=== PATIENT | female | born 1985 | race Caucasian/White ===

== ENCOUNTER → 2018-01-08 09:01 | Outpatient (CLI) | payer OTHER, SELFPAY ==
--- NOTE | 2018-01-08 09:08 | US_ITS ---
STUDY: ULTRASOUND OF THE FEMALE PELVIS - COMPLETE REASON FOR EXAM: Female, 32 years old. History of cervical cancer with hysterectomy. History of ovarian cyst. TECHNIQUE: Transabdominal and Transvaginal TECHNICAL QUALITY: Adequate. COMPARISON: CT the abdomen and pelvis, January 14, 2014. FINDINGS: The uterus is surgically absent. The right ovary is visualized. The right ovary measures 2.6 x 2.4 x 1.7 cm. There are multiple follicles of the right ovary without a dominant cyst. There is no visualized right adnexal mass or complex lesion. There is normal arterial and normal venous vascularity. The left ovary is visualized. The left ovary measures 2.2 x 1.6 x 2.1 cm. There are multiple follicles of the left ovary without a dominant cyst. There is no visualized left adnexal mass or complex lesion. There is normal arterial and normal venous vascularity. There is no fluid in the cul-de-sac. US/Pelvic (Non ) IMPRESSION: 1. Status post hysterectomy. 2. Bilateral ovarian follicles without evidence of cyst or other adnexal abnormality. Electronically Signed: Phil Jennings DO at 16:56 EDT Tel [phone], Service support ,
--- NOTE | 2018-01-08 09:09 | US_ITS ---
STUDY: ULTRASOUND OF THE FEMALE PELVIS - COMPLETE REASON FOR EXAM: Female, 32 years old. History of cervical cancer with hysterectomy. History of ovarian cyst. TECHNIQUE: Transabdominal and Transvaginal TECHNICAL QUALITY: Adequate. COMPARISON: CT the abdomen and pelvis, January 14, 2014. FINDINGS: The uterus is surgically absent. The right ovary is visualized. The right ovary measures 2.6 x 2.4 x 1.7 cm. There are multiple follicles of the right ovary without a dominant cyst. There is no visualized right adnexal mass or complex lesion. There is normal arterial and normal venous vascularity. The left ovary is visualized. The left ovary measures 2.2 x 1.6 x 2.1 cm. There are multiple follicles of the left ovary without a dominant cyst. There is no visualized left adnexal mass or complex lesion. There is normal arterial and normal venous vascularity. There is no fluid in the cul-de-sac. US/Transvaginal Non- IMPRESSION: 1. Status post hysterectomy. 2. Bilateral ovarian follicles without evidence of cyst or other adnexal abnormality. Electronically Signed: Phil Jennings DO at 16:56 EDT Tel [phone], Service support ,
== END ==
PROVIDERS: Family Provider Internal Medicine; PCP Internal Medicine; Visit Provider Obstetrics & Gynecology
DX: N83.202 Unspecified ovarian cyst, left side (principal); C53.9 Malignant neoplasm of cervix uteri, unspecified
CPT/HCPCS: 76830; 76856; 93976

== ENCOUNTER → 2018-08-08 16:50 | Outpatient (CLI) | payer OTHER, SELFPAY ==
--- NOTE | 2018-08-08 16:52 | CT_ITS ---
STUDY: CT ABDOMEN AND PELVIS WITH CONTRAST REASON FOR EXAM: Female, 32 years old. Abdominal pain. History of hysterectomy for cervical cancer. RADIATION DOSAGE (If Supplied By Facility): CTDIvol = ( 15.00 ) mGy, DLP = ( 498.70 ) mGycm TECHNIQUE: Transaxial images were obtained from the dome of the diaphragm to the symphysis pubis without oral contrast. 80ml ml of Isovue 300 contrast was administered. Sagittal and coronal images were reconstructed. Individualized dose optimization techniques were used for this CT. COMPARISON: None. FINDINGS: The visualized lung bases are clear. The visualized portions of the heart and pericardium are within normal limits. There are no calcified gallstones present. The liver is within normal limits. There are no suspicious hepatic lesions. The spleen is normal in size. The pancreas is within normal limits. The adrenal glands are within normal limits. There are no renal or ureteral stones. There is no hydronephrosis. There are no focal renal lesions. Normal visualized stomach. There is no bowel obstruction or inflammation. The appendix is visualized and appears normal. The patient is status post hysterectomy. The aorta is normal in caliber. There is no abdominal or pelvic free air, free fluid, fluid collection or lymphadenopathy. There are no destructive osseous lesions. CT/Abdomen/Pelvis W IV Cont ONLY IMPRESSION: No acute abdominal or pelvic pathology. Electronically Signed: Michael Farah, at 15:47 EST Tel , Service support ,
[2018-08-08 17:11] LABS: CREATININE FINGERSTICK 1.2 mg/dL (0.55-1.02)
--- NOTE | 2018-08-08 17:21 | RAD_ITS ---
STUDY: X-RAY CHEST REASON FOR EXAM: Female, 32 years old. Squamous cell carcinoma TECHNIQUE: Frontal and lateral views COMPARISON: None. FINDINGS: The lungs are clear and expanded. There is no demonstrated pleural abnormality. Normal size heart. Normal mediastinum and melina. Normal visualized pulmonary arteries. Normal visualized aortic arch and descending thoracic aorta. Normal visualized thoracic spine. Normal visualized ribs, clavicles, and shoulders. There is no demonstrated abnormality of the visualized soft tissue structures of the upper abdomen. RAD/Chest PA and Lateral IMPRESSION: Normal x-ray examination of the chest. Electronically Signed: Hermilo Brower DO at 23:30 EST Tel [phone], Service support ,
== END ==
PROVIDERS: Family Provider Internal Medicine; PCP Internal Medicine; Referring Provider Obstetrics & Gynecology; Visit Provider Obstetrics & Gynecology
DX: C53.9 Malignant neoplasm of cervix uteri, unspecified (principal); R10.84 Generalized abdominal pain; R11.0 Nausea
CPT/HCPCS: 71046; 74177; Q9967

== ENCOUNTER → 2019-06-19 12:43 | Outpatient (CLI) | payer OTHER, SELFPAY ==
[2019-06-04 14:10] VITALS: BMI 22.6
--- NOTE | 2019-06-19 12:47 | RAD_ITS ---
STUDY: SWALLOWING STUDY REASON FOR EXAM: Female, 33 years old. Dysphagia. TECHNIQUE: The examination was performed with Speech Pathology in attendance. Under fluoroscopic observation, the patient ingested thin barium, thick barium, barium pudding, and barium coated cracker. FLUOROSCOPY TIME: 1:16 minutes/seconds. 1123 spot radiographs are obtained. RADIOLOGIST INVOLVEMENT: Radiologist was present and providing direct supervision. COMPARISON: None. FINDINGS: The following was observed during swallowing of the various mixtures of barium: Thin Barium: There was no evidence of aspiration or laryngeal penetration. Barium Pudding: There was no evidence of aspiration or laryngeal penetration. Barium Coated Cracker: There was no evidence of aspiration or laryngeal penetration. RAD/Swallowing Function w/Video IMPRESSION: Normal tailored barium swallow study. No evidence of increased risk for aspiration. The swallow study findings were discussed with the patient by the speech pathologist at the conclusion of the examination. Please see speech pathology report for more information and recommendations. Electronically Signed: Jorge Anderson, at 13:19 EDT , Service support ,
--- NOTE | 2019-06-19 13:00 | SP.MBSS_ITS ---
PRIMARY / SECONDARY DIAGNOSIS: dysphagia (R13.10) REFERRING PHYSICIAN: Ronal Noble DNP CURRENT DIET: regular textures, thin liquids DENTITION: WFL MENTAL STATUS: WNL RESPIRATORY STATUS: O2 via room air REASON FOR REFERRAL: The Patient is a 33 year old female referred for a modified barium swallow (MBS) study to objectively assess the Patients oropharyngeal swallow function under fluoroscopy secondary to intermittent dysphagia particularly during ingestion of solid textures (meats, breads), with an increase in symptomology over the last 1-2 months, with occasional coughing leading to one episode of near emesis. She does report a family history of esophageal strictures. She reports recent placement on proton pump inhibitors approximately 2 weeks prior to the assessment (Omeprazole, 20mg daily), with possible considerations for further gastroenterology referrals (considerations for upper endoscopy). MEDICAL HISTORY: Asthma, cervical cancer status post biopsy and total hysterectomy, gastroesophageal reflux disease. PREVIOUS MODIFIED BARIUM SWALLOW STUDY: None. ASSESSMENT PARAMETERS: The Patient participated in a Modified Barium Swallow (MBS) study on 06/19/2019. Dr. Anderson was the radiologist present for this evaluation. This study was recorded in the lateral view and images were sent to PACs for storage. Scoring was completed through each trial using the 8-point Penetration-Aspiration Scale (PAS), and summarized via the Modified Barium Swallow Impairment Profile (MBSImP) and the Bolus Residue Scale (BRS), with severity scoring through the Dysphagia Severity Rating Scale (DSRS) and the Swallowing Performance Scale (PSP), and recommended diet textures through the International Dysphagia Diet Standardisation Initiative (IDDSI). RESULTS OF THE EVALUATION: The Patient presents with mastication and deglutition abilities found to be grossly within functional limits (DSRS: 1; SPS: 2) OBJECTIVE ASSESSMENT OF SWALLOW FUNCTION (QUANTITATIVE ? PER TRIAL): PENETRATION / ASPIRATION SCALE (SHER): 1 = does not enter airway 2 = enters airway/above vocal folds/ejected 3 = enters airway/above vocal folds/not ejected 4 = enters airway/contacts vocal folds/ejected 5 = enters airway/contacts vocal folds/not ejected 6 = enters airway/below vocal folds/ejected 7 = enters airway/below vocal folds/not ejected despite effort 8 = enters airway/below vocal folds/no effort PENETRATION / ASPIRATION SCALE (SCORE): Thin liquid - 5 mL tsp.: 1 Thin liquids via cup (single sip): 1 Thin liquids via cup (single sip): 1 Thin liquids via cup (single sip): 1 Thin liquids via cup (sequential swallows): 2 Pudding via spoon: 1 Regular textured cookie: 1 Thin liquids via straw (sequential swallows): 2 OBJECTIVE ASSESSMENT OF SWALLOW FUNCTION (QUANTITATIVE ? AGGREGATE): MODIFIED BARIUM SWALLOW IMPAIRMENT PROFILE (MBSImP) LABIAL SEAL: 0 (of 4) no labial escape TONGUE CONTROL: 0 (of 3) cohesive bolus BOLUS PREPARATION / MASTICATION: 0 (of 3) timely and efficient BOLUS TRANSPORT / LINGUAL MOTION: 0 (of 4) brisk tongue motion ORAL RESIDUE: 1 (of 4) trace residue lining oral structures INITIATION OF PHARYNGEAL SWALLOW: 1 (of 4) valleculae SOFT PALATE ELEVATION: 1 (of 4) trace column between soft palate & pharyngeal wall LARYNGEAL ELEVATION: 0 (of 3) complete superior movement / approximation ANTERIOR HYOID EXCURSION: 1 (of 2) partial movement EPIGLOTTIC MOVEMENT: 0 (of 2) complete inversion LARYNGEAL VESTIBULE CLOSURE: 0 (of 2) complete closure PHARYNGEAL STRIPPING WAVE: 0 (of 2) present / complete PE SEGMENT OPENIN (of 3) complete distension / duration; no obstruction TONGUE BASE RETRACTION: 1 (of 4) trace column of contrast PHARYNGEAL RESIDUE: 1 (of 4) trace residue ESOPHAGEAL BOLUS CLEARANCE: 0 (of 4) complete clearance; esophageal coating BOLUS RESIDUE SCALE (BRS): 1 (of 6) no residue DYSPHAGIA SEVERITY RATING SCALE (DSRS): 1 (within functional limits) SWALLOWING PERFORMANCE SCALE (SPS): 2 (within functional limits) OBJECTIVE ASSESSMENT OF SWALLOW FUNCTION (QUALITATIVE): ORAL PREPARATORY PHASE: oral preparatory phase appears unremarkable; sufficient mastication rate and quality; sufficient anterior oral containment during presentation / manipulation; preserved management of breathing / bolus formation. ORAL TRANSITIONAL PHASE: oral transitional phase appears unremarkable; no presence of transitional incompetence; no lingual discoordination (no tremor / undulations); no bolus consolidation impairments; no presence of premature posterior bolus loss; PHARYNGEAL PHASE: no clinical findings suggestive of pharyngeal dyssynchrony; appropriate hyolaryngeal excursion and laryngeal vestibule closure / pressure; sufficient / consistent laryngeal vestibule pressure generated to expel penetrated material; no clinical evidence of pharyngeal dysmotility; no clinical evidence suggestive of velopharyngeal impairments; transient shallow prandial penetration with sequential ingestion not necessarily outside normative values; no further penetration / no aspiration throughout trials. ESOPHAGEAL PHASE: no obvious esophageal phase abnormalities observed, though given her reported symptoms further workup would likely be of benefit. CONTRIBUTING / COMPLICATING FACTORS AND NOTABLE FINDINGS: there was a very small non-obstructive prominence emanating from the anterior upper esophageal sphincter region projecting posteriorly almost similar in nature to a small cricopharyngeal bar, though this was again very small in size; no clinical impact noted upon examination. RESPONSE TO STRATEGIES: all deficits ameliorated with bolus rate / volume adjustments. DYSPHAGIA ASSOCIATED MEDICAL CONSIDERATIONS / INTERVENTION CONSIDERATIONS: I would consider additional assessment of the Patients esophageal functioning given the nature of her complaints, particularly if pharmacological treatment via proton pump inhibitor fails to alleviate her symptomology. INTERVENTION RECOMMENDATIONS AND CONSIDERATIONS: The Patient presents with mastication and deglutition abilities found to be grossly within functional limits, with transient shallow penetration during sequential ingestion of thin liquids not significantly outside normative values. No further skilled speech-language services warranted at this time targeting dysphagia. POST ASSESSMENT EDUCATION: Results and recommendations were discussed with the Patient immediately following MBS completion, with the Patient verbalizing understanding and agreement with all recommendations and education provided. The Patient was able to comprehend information presented regarding the effects of bolus volume reduction, along with considerations for further workup of her possible esophageal based symptoms. DIET TEXTURE RECOMMENDATIONS: Will recommend a regular textured (IDDSI: 7), thin liquid diet (IDDSI: 0) diet RECOMMENDED COMPENSATORY STRATEGIES: Reduced bolus volume / rate of ingestion, seated upright at 90 degrees during PO intake, remain upright for 30-60 minutes post meal (GERD precaution) IMAGE COUNT: [id number] Emiliano Churchill M.A., KIERRA-RESERVATION MANAGER, CBIS MBSImP Certified, LSVT Certified [facility] Speech-Language Pathology Department [email or web address]
== END ==
PROVIDERS: Family Provider Internal Medicine; PCP Internal Medicine; Referring Provider Nurse Practitioner Family; Visit Provider Nurse Practitioner Family
DX: R13.10 Dysphagia, unspecified (principal)
CPT/HCPCS: 74230; 92611

== ENCOUNTER → 2019-06-24 08:02 | Outpatient (CLI) | payer OTHER, SELFPAY ==
[2018-10-05 15:15] VITALS: BMI 21.9
[2019-06-04 14:10] VITALS: BMI 22.6
--- NOTE | 2019-06-24 08:05 | US_ITS ---
STUDY: ULTRASOUND OF THE FEMALE PELVIS - COMPLETE REASON FOR EXAM: Female, 33 years old. History of cervical cancer. LMP: Prior hysterectomy. TECHNIQUE: Transabdominal and Transvaginal TECHNICAL QUALITY: Adequate. COMPARISON: Comparison is made with prior study dated January 08, 2018. FINDINGS: The patient is status post hysterectomy. The right ovary is visualized. The right ovary measures 2.5 cm x 2.8 cm x 2.1 cm. There is no right ovarian cyst or ovarian mass. There is no visualized right adnexal mass or complex lesion. There is normal arterial and normal venous vascularity. The left ovary is visualized. The left ovary measures 1.9 cm x 1.7 cm x 1.7 cm. There is no left ovarian cyst or ovarian mass. There is no visualized left adnexal mass or complex lesion. There is normal arterial and normal venous vascularity. There is no fluid in the cul-de-sac. The pre void volume of the bladder was 270 ml. The post void volume of the bladder was ml. Polycystic ovary disease: No. US/Pelvic (Non ) IMPRESSION: Status post hysterectomy. There has been no change as compared to prior study. Electronically Signed: Jorge Anderson, at 10:30 EST , Service support ,
--- NOTE | 2019-06-24 08:05 | US_ITS ---
STUDY: ULTRASOUND OF THE FEMALE PELVIS - COMPLETE REASON FOR EXAM: Female, 33 years old. History of cervical cancer. LMP: Prior hysterectomy. TECHNIQUE: Transabdominal and Transvaginal TECHNICAL QUALITY: Adequate. COMPARISON: Comparison is made with prior study dated January 08, 2018. FINDINGS: The patient is status post hysterectomy. The right ovary is visualized. The right ovary measures 2.5 cm x 2.8 cm x 2.1 cm. There is no right ovarian cyst or ovarian mass. There is no visualized right adnexal mass or complex lesion. There is normal arterial and normal venous vascularity. The left ovary is visualized. The left ovary measures 1.9 cm x 1.7 cm x 1.7 cm. There is no left ovarian cyst or ovarian mass. There is no visualized left adnexal mass or complex lesion. There is normal arterial and normal venous vascularity. There is no fluid in the cul-de-sac. The pre void volume of the bladder was 270 ml. The post void volume of the bladder was ml. Polycystic ovary disease: No. US/Transvaginal Non- IMPRESSION: Status post hysterectomy. There has been no change as compared to prior study. Electronically Signed: Jorge Anderson, at 10:30 EST , Service support ,
== END ==
PROVIDERS: Family Provider Internal Medicine; PCP Internal Medicine; Referring Provider Obstetrics & Gynecology; Visit Provider Obstetrics & Gynecology
DX: C53.9 Malignant neoplasm of cervix uteri, unspecified (principal)
CPT/HCPCS: 76830; 76856

== ENCOUNTER → 2019-11-20 07:54 | Outpatient (CLI) | payer OTHER, SELFPAY ==
[2019-10-31 06:33] VITALS: BMI 22.3
--- NOTE | 2019-11-20 17:13 | PFTCOMP ---
COMPLETE PULMONARY FUNCTION TEST INTERPRETATION Brief HPI: Patient is a 34 year old female, currently under the care of myself, who presents to [facility] for complete pulmonary function tests secondary to diagnosis of dyspnea. Respiratory therapist reports good effort and reproducible results. Interpretation: Forced expiration spirometry shows no large airways obstructive ventilatory defect with an FEV1 of 115% predicted. There is no significant bronchodilator response by strict ATS criteria. Spirograms are of good quality and plateau normally. The respiratory flow volume loop shows a normal pattern. Lung volumes by body plethysmography show a normal total lung capacity at 5.28 L, 112% predicted. All other lung volumes are within normal limits. Diffusion capacity by carbon monoxide is normal at 90% predicted. The airway resistance is normal. No previous pulmonary function tests were available for review. Impression: These pulmonary function tests are within normal limits
== END ==
PROVIDERS: PCP Internal Medicine; Referring Provider Internal Medicine Critical Care Medicine; Visit Provider Internal Medicine Critical Care Medicine
DX: R06.00 Dyspnea, unspecified (principal)
CPT/HCPCS: 94060; 94726; 94729

== ENCOUNTER 2019-12-16 14:34 | Day surgery (SDC) | payer OTHER, SELFPAY ==
[2019-10-31 06:33] VITALS: BMI 22.3
[2019-12-16 14:35] VITALS: BP 139/105; PULSE 79; RESP 15; TEMP 37.4; O2SAT 96; BMI 21.9
--- NOTE | 2019-12-16 15:04 | ED.VIS.GEN ---
History of Present Illness Chief Complaint: Foreign Body Narrative: This patient is a 34-year-old female who presents with an esophageal impaction. She was eating a roast today. She felt a get stuck in her throat and was able to regurgitate some of this however still feels like something is stuck in her throat. Anytime she tries to drink she immediately regurgitates this. She does have a history of some dysphasia and last year had a swallow study which was normal and was started on omeprazole for reflux. She otherwise denies any recent illness and review of systems is otherwise negative. Past Medical History - Allergies and Home Meds Allergies/Adverse Reactions: Allergies meperidine HCl [From Demerol] Allergy (Verified 10/31/19 12:12) Swelling Primary Care Physician: Donell Vernon MD [Primary Care Provider] - Past Medical History: - - Asthma Surgical History: hysterectomy Smoking Status: Never smoker Review of Systems All systems negative except as indicated General: Denies: Fever Eyes: Denies: Visual changes - bilaterally ENT: Denies: Bilateral ear pain Cardiovascular: Denies: Chest pain Respiratory: Denies: Dyspnea Gastrointestinal: Reports: Nausea, Vomiting. Denies: Abdominal pain, Diarrhea Musculoskeletal: Denies: Myalgias, Arthralgias Skin: Denies: Rash Neurological: Denies: Headache Physical Exam Vital Signs/Narrative: Vital Signs Temp Pulse Resp BP Pulse Ox 12/16/19 14:35 99.3 F H 79 15 139/105 H 96 Inital Vital Signs reviewed: Yes General: Well nourished Head: Normocephalic Eyes: EOMI ENT: Moist mucous membranes Neck: Supple Cardiovascular: Regular rate, Regular rhythm Respiratory: No distress, CTA bilaterally Abdomen: Soft, Nontender, Nondistended Skin: Normal color Neurological: Alert Psychological: Normal affect Diagnostic/Tx/Re-eval - Medical Decision Making We did try glucagon here without any benefit. Patient continues to regurgitate anything she tries to drink. I did speak to general surgery on-call, Dr. Torres. Plan is for endoscopy. ED Disposition - Plan for ED Patient: Diagnosis: Esophageal obstruction due to food impaction Instructions: ED Foreign Body Esophageal Rslv Referrals: Donell Vernon MD [Primary Care Provider] - Juan José Torres MD [STAFF PHYSICIAN] -
[2019-12-16] MEDS: Ondansetron 4 MG/2 ML Vial IV (15:19)
[2019-12-16] MEDS: Glucagon 1 MG/ML Syringe IV (15:21)
== END 2019-12-16 16:20 ==
LOC: ED 15:20 → EN 12-17 09:35
PROVIDERS: Emergency Provider Emergency Medicine; PCP Internal Medicine; Referring Provider Surgery; Visit Provider Surgery
DX: T18.128A Food in esophagus causing other injury, initial encounter (principal); J45.909 Unspecified asthma, uncomplicated; Z88.5 Allergy status to narcotic agent; Z90.710 Acquired absence of both cervix and uterus
CPT/HCPCS: 43247; 99282; J7120; A4216; J1610; J2405

== ENCOUNTER → 2020-03-11 13:47 | Outpatient (CLI) | payer OTHER, SELFPAY ==
[2020-02-20 10:04] VITALS: BMI 22.3
[2020-03-11 08:34] VITALS: BMI 22.3
[2020-03-11 08:48] LABS: Bacteria 0 SEEN /hpf (None Seen); Mucous, Urine 0 SEEN /hpf (<or=2+); Red Blood Cells-Urine 0 SEEN /hpf (0-5); White Blood Cells 0 SEEN /hpf (0-5)
[2020-03-11 12:39] LABS: Color, Urine Amber (Yellow); Glucose, Dipstick Normal (Normal); Ketone-Dipstick Negative (Negative); Leukocyte Esterase-Dipstick Negative /ul (Negative); Nitrite-Dipstick Positive (Negative); Occult Blood-Urine Negative /ul (Negative); Protein-Dipstick Negative (Negative); Specific Gravity, Urine 1.005 (1.002-1.030); Urine Bilirubin Dipstick 1 mg/dL (Negative); Urine Clarity Sl. Cloudy (Clear); Urine Urobilinogen 4 mg/dl (Normal); Urine pH 6.5 (5.0 - 8.0)
[2020-03-11 12:47] LABS: Squamous Epithelial Cells - UA 0-5 SEEN /hpf (5-10)
--- NOTE | 2020-03-11 13:48 | ECHOD_ITS ---
Reason For Study: DYSPNEA Procedure This was a 2D Doppler, Color Flow transthoracic echocardiogram. Myocardial strain analysis was performed in this exam to aid in the assessment of cardiac function. Exam performed in department. Left Ventricle Normal size and thickness. The estimated ejection fraction is 65 %. The global longitudinal strain = -23.1 % (normal). Normal diastology for age. No regional wall motion abnormalities noted. Right Ventricle Normal size and thickness. Normal systolic function. Atria Normal left atrium. Normal right atrium. Normal atrial septum. Mitral Valve The mitral valve is structurally normal. No prolapse or stenosis seen. Trivial eccentric mitral valve insufficiency. Tricuspid Valve Normal tricuspid valve. Trivial tricuspid valve insufficiency. Right ventricular systolic pressure estimated to be 26 mmHg. Aortic Valve Normal aortic valve. Trisinus/trileaflet aortic valve. Pulmonic Valve Normal pulmonic valve. Great Vessels Normal aortic root. Normal arch. Normal inferior vena cava. Inferior vena cava collapse with sniff. Pericardium/Pleural No pericardial effusion. MMode/2D Measurements & Calculations LVIDd: 4.7 cm IVSd: 0.63 cm Ao root diam: 2.7 cm LVIDs: 3.2 cm LVPWd: 0.61 cm RVDd: 3.5 cm FS: 31.2 % LAV(MOD-bp): 43.4 ml LA A4 area: 16.6 cm2 LA dimension(2D): 2.9 cm LAV(MOD-bp) Indexed: 27.4 ml/m2 LAV(MOD-sp2): 45.7 ml LAV(MOD-sp4): 41.0 ml RA A4 area: 14.5 cm2 Time Measurements MV dec time: 0.25 sec Doppler Measurements & Calculations MV E max toney: 81.6 cm/sec Lat Peak E' Toney: 15.5 cm/sec Med Peak E' Toney: 12.6 cm/sec MV A max toney: 48.9 cm/sec E/E' lat: 5.3 E/E' med: 6.5 MV E/A: 1.7 Ao V2 max: 122.4 cm/sec LV V1 max: 97.8 cm/sec TR max toney: 229.6 cm/sec Ao max P.0 mmHg LV V1 max P.8 mmHg TR max P.2 mmHg Interpretation Summary The estimated ejection fraction is 65 %. The global longitudinal strain = -23.1 % (normal). Normal diastology for age. Trivial eccentric mitral valve insufficiency. Trivial tricuspid valve insufficiency. Right ventricular systolic pressure estimated to be 26 mmHg. There is no comparison study available. Ordering Physician: Raul Das Referring Physician: Donell Vernon Performed By: Pepper KING, Vikki MEYERS and Student
== END ==
PROVIDERS: Nurse Practitioner Family; PCP Internal Medicine; Referring Provider Internal Medicine Critical Care Medicine; Visit Provider Internal Medicine Critical Care Medicine
DX: R30.0 Dysuria (principal); R06.00 Dyspnea, unspecified
CPT/HCPCS: 81001; 87086; 87088; 93306

== ENCOUNTER → 2020-07-01 15:26 | Outpatient (CLI) | payer OTHER, SELFPAY ==
[2020-06-18 13:05] VITALS: BMI 21.4
--- NOTE | 2020-07-01 15:32 | US_ITS ---
STUDY: ULTRASOUND OF THE FEMALE PELVIS - COMPLETE REASON FOR EXAM: Female, 34 years old. Status post partial hysterectomy. History of ovarian cyst for follow-up. History of cervical cancer. LMP: TECHNIQUE: Transvaginal TECHNICAL QUALITY: Adequate. COMPARISON: June 24, 2019. FINDINGS: Uterus absent compatible with hysterectomy. The right ovary is visualized. The right ovary measures 2.9 x 2.5 x 1.9 cm. Minimally complex ovarian cyst measuring 0.9 x 0.8 x 0.7 cm. There is no visualized right adnexal mass or complex lesion. There is normal arterial and normal venous vascularity. The left ovary is visualized. The left ovary measures 3.3 x 2.9 x 2.0 cm cm. Simple ovarian cyst measuring 1.9 x 1.9 x 1.7 cm There is no visualized left adnexal mass or complex lesion. There is normal arterial and normal venous vascularity. There is no fluid in the cul-de-sac. The pre void volume of the bladder was 269 ml. Polycystic ovary disease: No. US/Pelvic (Non ) IMPRESSION: Bilateral ovarian cysts compatible with physiologic cysts. Electronically Signed: Vik Real MD at 0:27 EST , Service support ,
--- NOTE | 2020-07-01 15:32 | US_ITS ---
STUDY: ULTRASOUND OF THE FEMALE PELVIS - COMPLETE REASON FOR EXAM: Female, 34 years old. Status post partial hysterectomy. History of ovarian cyst for follow-up. History of cervical cancer. LMP: TECHNIQUE: Transvaginal TECHNICAL QUALITY: Adequate. COMPARISON: June 24, 2019. FINDINGS: Uterus absent compatible with hysterectomy. The right ovary is visualized. The right ovary measures 2.9 x 2.5 x 1.9 cm. Minimally complex ovarian cyst measuring 0.9 x 0.8 x 0.7 cm. There is no visualized right adnexal mass or complex lesion. There is normal arterial and normal venous vascularity. The left ovary is visualized. The left ovary measures 3.3 x 2.9 x 2.0 cm cm. Simple ovarian cyst measuring 1.9 x 1.9 x 1.7 cm There is no visualized left adnexal mass or complex lesion. There is normal arterial and normal venous vascularity. There is no fluid in the cul-de-sac. The pre void volume of the bladder was 269 ml. Polycystic ovary disease: No. US/Transvaginal Non- IMPRESSION: Bilateral ovarian cysts compatible with physiologic cysts. Electronically Signed: Vik Real MD at 0:27 EST , Service support ,
--- NOTE | 2020-07-01 15:40 | RAD_ITS ---
STUDY: X-RAY CHEST REASON FOR EXAM: Female, 34 years old. HX OF CERVICAL CANCER 3 YEARS AGO. CYST FOLLOW UP. TECHNIQUE: 2 views COMPARISON: Prior chest radiograph of 08/08/2018 FINDINGS: The lungs are clear and expanded. There is no demonstrated pleural abnormality. Normal size heart. Normal mediastinum and melina. Normal visualized pulmonary arteries. Normal visualized aortic arch and descending thoracic aorta. Normal visualized thoracic spine. Normal visualized ribs, clavicles, and shoulders. There is no demonstrated abnormality of the visualized soft tissue structures of the upper abdomen. RAD/Chest PA and Lateral IMPRESSION: Normal x-ray examination of the chest. Electronically Signed: Kaity Molina MD at 21:36 EST , Service support ,
== END ==
PROVIDERS: PCP Internal Medicine; Referring Provider Obstetrics & Gynecology; Visit Provider Obstetrics & Gynecology
DX: C53.9 Malignant neoplasm of cervix uteri, unspecified (principal)
CPT/HCPCS: 71046; 76830; 76856

== ENCOUNTER 2020-07-03 10:08 | Day surgery (SDC) | payer OTHER, SELFPAY ==
[2020-06-18 13:05] VITALS: BMI 21.4
[2020-07-03] VITALS (7 sets, daily range): BP systolic 99–125; BP diastolic 53–69; PULSE 67–77; RESP 16; TEMP 36.7–37.3; O2SAT 100; BMI 24.1
[2020-07-03] MEDS: Lactated Ringers 1,000 ML 100 ML IV (10:29)
--- NOTE | 2020-07-03 11:00 | HP_ITS ---
Intake Vital Signs 06/18/20 Height 5 ft 4 in 06/18/20 Weight: 125 lb 06/18/20 BP 121/82 H 06/18/20 Blood Pressure Location Rt brachial 06/18/20 Position Sitting 06/18/20 Respiration 16 06/18/20 Pulse 82 06/18/20 Pulse Source Monitor 06/18/20 Temp 98.2 F 06/18/20 Temp Source Temporal 06/18/20 Pulse Oximetry (%) 99 06/18/20 Oxygen Delivery Method room air Intake Visit Reasons: DISCUSS EGD , 6 MONTH F/U Chief Complaint: 6 month repeat EGD Laborer Electroplating Required: No Is patient in pain?: No Allergies meperidine HCl [From Demerol] Allergy (Verified 06/18/20 13:10) Swelling Medications omeprazole 20 mg capsule,delayed release 20 mg PO DAILY #90 cap 01/03/20 [Rx Confirmed 06/18/20] PFSH Medical History Dysphagia (Acute) GERD (gastroesophageal reflux disease) (Chronic) Costochondritis (Acute) Acute bronchitis (Acute) Hematuria (Acute) UTI (urinary tract infection) (Acute) History of cervical cancer (Chronic) Asthma (Resolved) Surgical History History of esophagogastroduodenoscopy (EGD) (Acute) H/O cervical biopsy (Resolved) History of total hysterectomy (Resolved) Family History Grandfather Myocardial infarction, Onset Age: 50 Hypertension Mother Hypertension Grandmother CVA (cerebral vascular accident) Brother Asthma Social History (Updated 06/19/20 @ 10:[address] Juan José Torres MD) Smoking Status: Never smoker alcohol intake: current alcohol intake frequency: a few times a week substance use type: does not use what type of physical activity do you participate in: none HPI HPI Surgical H&P: Yes HPI: SARAH HAGAN, is a 34 F who presents to the office today for Follow-up from an esophageal foreign body. I performed a emergent EGD on her in the emergency department on 12/16/2019 when she had food stuck in her distal esophagus. I was able to push this through to her stomach she was noted to have a Schatzki's ring. And initially afterwards she was doing okay it is noticed that she has now experiencing dysphagia again. ROS General General: No weight change, appetite, fatigue, colon cancer or breast cancer HEENT HEENT: Yes difficulty swallowing; no eye injury, eye surgery, swollen glands or hoarseness Endo Endocrine: No thyroid disease, diabetes mellitus, thyroid cancer, Hair loss, heat intolerance or cold intolerance Skin Skin: No rash or changing moles Musc Musculoskeletal: No back problems, arthritis, rheumatoid arthritis, gout or joint pain Cardio Cardiovascular: No murmur, pacemaker, heart disease, atrial fibrillation, high blood pressure, heart attack, heart stent, palpitations, shortness of breat with exertion or chest pain Psych Psychiatric: No depression, anxiety or hearing voices Resp Respiratory: No shortness of breath, No sleep apnea, No cough, No COPD, No asthma, No emphysema, No wheezing Gastro Gastrointestinal: No abdominal pain, No nausea or vomiting, No diarrhea, No constipation, No blood in stool, Yes acid reflux, No hemorrhoids, No ulcers, No gallbladder problem, No black,tarry stools Rajan Hematologic: No blood thinners, No blood disorders, No bleeding, No anemia, No blood clots Exam Const General: no acute distress, well developed, well hydrated Orientation: oriented to person, oriented to place, oriented to time [facility] Head: normocephalic, atraumatic Ears: external ears normal Mouth: moist mucous membranes Eyes Sclera: sclerae normal Pupils: normal by confrontation Neck Neck: no lymphadenopathy noted Neck mass: No Thyroid: thyroid normal, symmetrical Chest Chest palpation & inspection: normal inspection of the chest Resp Effort & Inspection: normal respiratory effort Auscultation: clear to auscultation bilaterally Percussion: percussion normal Cardio Rate: regular rate Rhythm: regular rhythm Heart Sounds: no murmurs GI Palpation: soft, no hepatosplenomegaly, no masses, nontender Rectal Exam: other Other: Rectal exam deferred. Extrem General: normal to inspection, no clubbing, cyanosis or edema Assessment & Plan Problems 1. Esophageal dysphagia R13.10 Plan I have discussed the above with the patient. I have offered the patient esophagogastroduodenoscopy for evaluation. I have explained the risks/benefits of the procedure and described the procedure. I have discussed the risks with the patient, including but not limited to: infection, bleeding, perforation of the GI tract requiring emergency surgery, inability to complete the procedure, injury to any internal organs, complications of anesthesia, etc. - the patient understands and agrees to proceed. I have answered all the patient's questions to the patient's satisfaction and the patient has no further questions. The patient has been given instructions for the colon cleansing preparation. We may need to do esophageal dilatation. Coding Level of Care Code Off vis,est,level 3 Diagnoses Esophageal dysphagia R13.10 ??Dysphagia type: esophageal phase COVID (Procedure Consent) Procedure Criteria Procedure Criteria: Yes Elective The surgeon/proceduralist and patient have discussed in detail the risk of exposure to and/or potential harm posed by the COVID-19 virus with having a surgery/procedure at this time versus the risk of? delaying the surgery/procedure. It is not possible to know either the risk of delaying the surgery or procedure or chance of getting an infection with perfect accuracy, but a joint decision was made between the patient and the surgeon/proceduralist ?to proceed at this time with the scheduled surgery/procedure as indicated on the consent form. I have re-examined the patient. There are no clinical changes since date of exam.
--- NOTE | 2020-07-03 11:15 | EGD_PTH ---
PATIENT: SARAH HAGAN LOC: EN U#:[id number] AGE/SX: 34/F ROOM: RE07/03/[address]: Dr. Juan José Torres MD : 1985 BED: DIS: 07/03/2020 SPEC #: [id number] RECD: 07/03/20 11:46 STATUS: VIRGIE MOEBlanca #: [id number] FANTA: 07/03/20 11:[address]: Juan José Torres DEPT: SURGICAL PATHOLOGY RECD BY: Guevara Webster ENTERED: 07/03/20 12:18 SP TYPE: EGD BIOPSY OT DR: Dr. Donell Vernon MD Tissues: Gastric mucous membrane Procedures: Surgery Specimen Level IV HEADER OPERATION: EGD ([facility] [place]) PRE-OP DIAGNOSIS: Esophageal dysphagia TISSUE SUBMITTED: Antrum biopsy for histo and H. pylori MICROSCOPIC DIAGNOSIS Antrum biopsy: Mild gastritis. See microscopic description and comment. SJ:dariela 07/06/20 COMMENT The results of immunohistochemistry for Helicobacter pylori will be reported separately ([id number]). MICROSCOPIC DESCRIPTION Slides are reviewed. The specimen shows fragments of gastric mucosa with chronic inflammatory cell infiltrates in the lamina propria consisting of lymphocytes and plasma cells, consistent with mild chronic gastritis. GROSS DESCRIPTION Received in fixative is one container labeled with the patient's name and designated antrum biopsy. The specimen consists of two irregular fragments of light fisher soft tissue that in aggregate measure 0.5 x 0.3 x 0.1 cm. The specimen is totally submitted in one cassette. / AIDA:dariela 07/03/20 TC:3 CPT: 38175
--- NOTE | 2020-07-03 11:15 | IMM_PTH ---
PATIENT: SARAH HAGAN LOC: EN U#:[id number] AGE/SX: 34/F ROOM: RE07/03/[address]: Dr. Juan José Torres MD : 1985 BED: DIS: 07/03/2020 SPEC #: [id number] RECD: 07/03/20 13:58 STATUS: VIRGIE REQ #: [id number] FANTA: 07/03/20 11:[address]: Juan José Torres DEPT: IMMUNOHISTOCHEMISTRY RECD BY: Shelia Hanna ENTERED: 07/03/20 13:58 SP TYPE: IMMUNO OTHR DR: Dr. Donell Vernon MD Tissues: Stomach, NOS Procedures: H Pylori (initial) PHYSICIAN & [place] [id number] SPECIMEN INFORMATION: Tissue Source: Antrum biopsy Clinical Info: Esophageal dysphagia Specimen Number: [id number] CPT code: 84496 METHODOLOGY: Deparaffinized sections of prefer/formalin-fixed tissue or PAP/DQ stained slides are incubated with monoclonal/polyclonal antibodies/oligonucleotide probes. Localization is made via biotin free immunoperoxidase method. Appropriate controls are performed and reacted as expected. Results on target cell population are indicated in the following table: RESULTS: ANTIBODY / CLONE RESULT H Pylori (polyclonal) negative These tests were developed and their performance characteristics determined by [facility]. They may not have been cleared or approved by the U.S. Food and Drug Administration. The FDA has determined that such clearance or approval is not necessary. INTERPRETATION: Antrum biopsy: Negative for Helicobacter pylori organisms. SJ:dariela 07/06/20
--- NOTE | 2020-07-03 11:36 | OP.EGD_ITS ---
Patient Name: Tamika Sauceda Procedure Date: 07/03/2020 11:17 AM Date of : 1985 Age: 34 Procedure: Upper GI endoscopy Indications: Esophageal dysphagia Providers: Juan José Torres MD Referring MD: Donell Vernon MD Medicines: See the Anesthesia note for documentation of the administered medications Patient Profile: This is a 34 year old female. Refer to note in patient chart for documentation of history and physical. Complications: No immediate complications. Procedure: Pre-Anesthesia Assessment: - Prior to the procedure, a History and Physical was performed, and patient medications and allergies were reviewed. The patient's tolerance of previous anesthesia was also reviewed. The risks and benefits of the procedure and the sedation options and risks were discussed with the patient. All questions were answered, and informed consent was obtained. Prior Anticoagulants: The patient has taken no previous anticoagulant or antiplatelet agents. ASA Grade Assessment: II - A patient with mild systemic disease. After reviewing the risks and benefits, the patient was deemed in satisfactory condition to undergo the procedure. After obtaining informed consent, the endoscope was passed under direct vision. Throughout the procedure, the patient's blood pressure, pulse, and oxygen saturations were monitored continuously. The gastroscope was introduced through the mouth, and advanced to the second part of duodenum. The upper GI endoscopy was accomplished without difficulty. The patient tolerated the procedure well. Scope In: 11:23:32 AM Scope Out: 11:26:12 AM Total Procedure Duration Time 0 hours 2 minutes 40 seconds Findings: The examined esophagus was normal. No biopsies or other specimens were collected for this exam. The Z-line was regular and was found 37 cm from the incisors. A 2 cm hiatal hernia was present. The entire examined stomach was normal. Biopsies were taken with a cold forceps for Helicobacter pylori testing. The examined duodenum was normal. No biopsies or other specimens were collected for this exam. Impression: - Normal esophagus. No specimens collected. - Z-line regular, 37 cm from the incisors. - 2 cm hiatal hernia. - Normal stomach. Biopsied. - Normal examined duodenum. No specimens collected. Recommendation: - Discharge patient to home. - Resume previous diet. - Continue present medications. - Await pathology results. - Repeat upper endoscopy (date not yet determined) for surveillance. - Return to my office in 1 week. Procedure Code(s): --- Professional --- 49255, Esophagogastroduodenoscopy, flexible, transoral; with biopsy, single or multiple Diagnosis Code(s): --- Professional --- K44.9, Diaphragmatic hernia without obstruction or gangrene R13.14, Dysphagia, pharyngoesophageal phase CPT copyright 2017 [employer]. All rights reserved. The codes documented in this report are preliminary and upon certified prosthetist vice president review may be revised to meet current compliance requirements. MD Juan José Miranda MD 07/03/2020 11:36:18 AM This report has been signed electronically. Number of Addenda: 0 Note Initiated On: 07/03/2020 11:17 AM
--- NOTE | 2020-07-03 11:36 | OP.CCLET_ITS ---
07/03/2020 Donell Vernon MD [address] [place] [address] [place] [address] Re : Upper GI endoscopy procedure for Tamika Sauceda Dear Dr. Vernon This procedure was performed on Friday, July 03, 2020. My impressions and recommendations are as follows: Impressions : - Normal esophagus. No specimens collected. - Z-line regular, 37 cm from the incisors. - 2 cm hiatal hernia. - Normal stomach. Biopsied. - Normal examined duodenum. No specimens collected. Recommendations : - Discharge patient to home. - Resume previous diet. - Continue present medications. - Await pathology results. - Repeat upper endoscopy (date not yet determined) for surveillance. - Return to my office in 1 week. My findings are described in the full procedure note, which is enclosed. If I can be of further assistance, please feel free to contact me at Doctor phone number(s): , Fax: [phone], Work: . Sincerely, MD Juan José Miranda MD 07/03/2020 11:36:18 AM This report has been signed electronically.
== END 2020-07-03 12:21 | disposition home or self-care (01) ==
LOC: EN 10:09 → AC 10:09
PROVIDERS: PCP Internal Medicine; Referring Provider Internal Medicine; Visit Provider Surgery
PROC: 0DJ08ZZ Inspection of Upper Intestinal Tract, Via Natural or Artificial Opening Endoscopic (ICD-10-PCS; CPT 43235; principal; 2020-07-03 11:10)
DX: K29.50 Unspecified chronic gastritis without bleeding (principal); R13.10 Dysphagia, unspecified; K44.9 Diaphragmatic hernia without obstruction or gangrene; K21.9 Gastro-esophageal reflux disease without esophagitis; Z85.41 Personal history of malignant neoplasm of cervix uteri; Z90.710 Acquired absence of both cervix and uterus; Z88.5 Allergy status to narcotic agent
CPT/HCPCS: 43239; 87426; 88305; 88342; C9803; J7120; J2405

== ENCOUNTER → 2020-09-04 08:59 | Outpatient (CLI) | payer OTHER, SELFPAY ==
[2020-07-03 10:25] VITALS: BMI 24.1
== END ==
PROVIDERS: PCP Internal Medicine; Referring Provider Internal Medicine Critical Care Medicine; Visit Provider Internal Medicine Critical Care Medicine
DX: R00.2 Palpitations (principal); R06.02 Shortness of breath
CPT/HCPCS: 93225; 93226

== ENCOUNTER 2020-09-17 09:21 | Outpatient (RCR) | payer OTHER, SELFPAY ==
[2020-07-03 10:25] VITALS: BMI 24.1
== END 2020-09-20 23:59 ==
LOC: EMPH 09:21
PROVIDERS: PCP Internal Medicine; Referring Provider Family Medicine Geriatric Medicine; Visit Provider Family Medicine Geriatric Medicine
DX: Z03.818 Encounter for observation for suspected exposure to other biological agents ruled out (principal)
CPT/HCPCS: 87426

== ENCOUNTER → 2020-11-10 10:07 | Outpatient (CLI) | payer OTHER, SELFPAY ==
[2020-11-03 09:31] VITALS: BMI 22.1
--- NOTE | 2020-11-10 10:09 | US_ITS ---
STUDY: ABDOMINAL ULTRASOUND - RIGHT UPPER QUADRANT REASON FOR VISIT: Female, 35 years old RUQ pain -- RUQ TECHNIQUE: Ultrasound evaluation of the right upper quadrant was performed with real-time and static feldman-scale imaging. TECHNICAL QUALITY: Adequate. COMPARISON: Comparison is made with prior examination dated 12/23/2015. FINDINGS: Liver: The liver measures 16.6 cm. There is normal echogenicity of the liver. The bile ducts are within normal limits. There is hepatic color flow. The direction of portal flow is hepatopetal. There is no demonstrated mass lesion. Gallbladder: Normal distended gallbladder. The gallbladder wall measures 3.0 mm. There is a negative sonographic Sherman''s sign. There is no pericholecystic fluid. There are no gallstones. Small amount of sludge is seen along the dependent portion of the gallbladder. Common Bile Duct (C.B.D.): The common bile duct measures 3 mm. Pancreas: Normal size of the head, body and tail of the pancreas. There is normal echogenicity of the pancreas. There is no demonstrated pancreatic mass or cyst. Right Kidney: Normal size of the right kidney. The right kidney measures 11.9 cm x 5 cm x 3.7 cm. Normal renal cortex. The right cortex measures 1.4 cm. There is no demonstrated renal mass or cyst. There is no right hydronephrosis. US/Abdomen Limited IMPRESSION: Small amount of sludge is seen in the gallbladder lumen. Electronically Signed: Jorge Anderson MD at 14:06 EDT , Service support ,
== END ==
PROVIDERS: PCP Internal Medicine; Referring Provider Surgery; Visit Provider Surgery
DX: R10.11 Right upper quadrant pain (principal)
CPT/HCPCS: 76705

== ENCOUNTER 2020-11-17 05:55 | Day surgery (SDC) | payer OTHER, SELFPAY ==
--- NOTE | 2020-11-16 11:01 | EKG12_ITS ---
Test Reason : PREOP Blood Pressure : / mmHG Vent. Rate : 067 BPM Atrial Rate : 067 BPM P-R Int : 156 ms QRS Dur : 096 ms QT Int : 382 ms P-R-T Axes : 076 083 022 degrees QTc Int : 403 ms Normal sinus rhythm Nonspecific T wave abnormality Confirmed by LEONIDAS WARE, ODALYS ([id number]), restaurant expeditor THUAN TELLO ([id number]) on 11/17/2020 10:47:20 AM Referred By: Eulalio Sorto Confirmed By:ODALYS LAUREN MD
[2020-11-17] VITALS (7 sets, daily range): BP systolic 110–130; BP diastolic 68–98; PULSE 50–69; RESP 16–18; TEMP 36.3–37.5; O2SAT 99–100; BMI 24.1
--- NOTE | 2020-11-17 06:49 | HP.PCM_ITS ---
Problem List (1) Gallbladder sludge Status: Acute History and Physical Date of Admission: 11/17/20 Intake Intake Visit Reasons: Discuss lap susy Chief Complaint: discuss surgery [place] Strip Gauger Required: No Is patient in pain?: No Allergies meperidine HCl [From Demerol] Allergy (Verified 11/13/20 09:55) Swelling Medications omeprazole 20 mg capsule,delayed release 20 mg PO DAILY #90 cap 07/07/20 [Rx Confirmed 11/13/20] Arthritis Pain Compound See Protocol TOPICAL BID #1 bottle 08/19/20 [Rx Confirmed 11/13/20] sucralfate 1 gram tablet 1 g PO QACHS #60 tab 11/03/20 [Rx Confirmed 11/13/20] PFSH Medical History Dysphagia (Acute) GERD (gastroesophageal reflux disease) (Chronic) Costochondritis (Acute) Acute bronchitis (Acute) Hematuria (Acute) UTI (urinary tract infection) (Acute) History of cervical cancer (Chronic) history of schatzki ring (Acute) Asthma (Resolved) Surgical History History of esophagogastroduodenoscopy (EGD) (Acute) H/O cervical biopsy (Resolved) History of total hysterectomy (Resolved) History of esophagogastroduodenoscopy (EGD) (Acute ~06/2020) Family History Grandfather Myocardial infarction, Onset Age: 50 Hypertension Mother Hypertension Grandmother CVA (cerebral vascular accident) Brother Asthma Social History (Updated 11/13/20 @ 10:[address] Eulalio Sorto MD) alcohol intake: current alcohol intake frequency: a few times a week substance use type: does not use what type of physical activity do you participate in: none HPI HPI HPI: SARAH HAGAN, is a 35 F who presents to the office today for HPI HPI Surgical H&P: Yes HPI: SARAH HAGAN is a 35 F who presents to the office today for abdominal pain. The patient has continuing ongoing abdominal pain. She has nausea with no vomiting. ROS General General: No weight change or fatigue Cardio Cardiovascular: No murmur, pacemaker, heart disease, atrial fibrillation, high blood pressure, heart attack, heart stent, palpitations, shortness of breat with exertion or chest pain Psych Psychiatric: No depression or anxiety Resp Respiratory: No shortness of breath, No sleep apnea, No cough, No COPD, No asthma, No emphysema, No wheezing Gastro Gastrointestinal: Yes abdominal pain, Yes nausea or vomiting, No diarrhea, No constipation, No blood in stool, No acid reflux, No hemorrhoids, No ulcers, Yes gallbladder problem, No black,tarry stools Rajan Hematologic: No blood thinners Exam Const General: cooperative Orientation: alert, oriented x3 Resp Effort & Inspection: normal respiratory effort Auscultation: clear to auscultation bilaterally Cardio Rate: regular rate Rhythm: regular rhythm Heart Sounds: no murmurs GI Inspection: non-distended Palpation: soft, tender in the RUQ Assessment & Plan Problems 1. Gallbladder sludge K82.8 Plan The patient has abdominal pain that is consistent with biliary colic. She had an ultrasound of her gallbladder which revealed sludge in the gallbladder. I recommend laparoscopic cholecystectomy I discussed the procedure in detail with the patient. I discussed the risks, benefits, and alternatives of the procedure. I discussed the risks including but not limited to bleeding, infection, injury to surrounding organs such as the liver, bile duct, bowels. I did discuss the possibility of having to convert to an open procedure as well as the possibility that if any injuries occurred this may necessitate further surgery at a tertiary care center. Eulalio Sorto MD Pager: [facility] [address] [place] [address], [address] [place] [address] Office: I have re-examined the patient. There are no clinical changes since date of exam.
[2020-11-17] MEDS: Lactated Ringers 1,000 ML 100 ML IV ×2 (07:04→08:54)
--- NOTE | 2020-11-17 07:30 | GALL_PTH ---
PATIENT: SARAH HAGAN LOC: [facility] U#:[id number] AGE/SX: 35/F ROOM: RE11/17/[address]: Dr. Eulalio Sorto MD : 1985 BED: DIS: 11/17/2020 SPEC #: [id number] RECD: 11/17/20 11:42 STATUS: VIRGIE REBlanca #: [id number] FANTA: 11/17/20 07:[address]: Eulalio Sorto DEPT: SURGICAL PATHOLOGY RECD BY: Mirna Howard ENTERED: 11/17/20 12:27 SP TYPE: PAUL ALANIZ DR: Dr. Donell Vernon MD Tissues: Gallbladder, NOS Procedures: Surgery Specimen Level III HEADER OPERATION: Laparoscopic cholecystectomy with IOC PRE-OP DIAGNOSIS: Gallbladder sludge TISSUE SUBMITTED: Gallbladder MICROSCOPIC DIAGNOSIS Gallbladder, cholecystectomy: Mild chronic cholecystitis and focal cholesterolosis. No stones are identified in the container or in the gallbladder. SJ:dariela 11/18/2020 MICROSCOPIC DESCRIPTION Slides are reviewed. GROSS DESCRIPTION Received is one container labeled with the patient's name and designated gallbladder. The specimen consists of a gallbladder measuring 6 cm in length and up to 2.3 cm in diameter. The external surface is pink-fisher, smooth and glistening for the most part. Focally it is granular, hemorrhagic and contains cautery artifact. The gallbladder contains green-yellow mucoid bile. No stones are identified in the container or in the gallbladder. The mucosa is bile-stained and without any mass lesions. The gallbladder wall measures up to 0.1 cm in thickness. Rehabilitation Technician sections from the gallbladder and the cystic duct are submitted in one cassette. / AIDA:dariela 11/17/20 TC:3 CPT: 62974
[2020-11-17] MEDS: Cefotetan 2 GM in 0.9% NS 100 ML IV (07:32)
--- NOTE | 2020-11-17 07:37 | RAD_ITS ---
STUDY: INTRAOPERATIVE CHOLANGIOGRAM. REASON FOR EXAM: Female, 35 years old. PAIN. Laparoscopic cholecystectomy. FLUOROSCOPY TIME (if supplied): ( 10 seconds ) minutes/seconds. A cine loop of 54 images were submitted. TECHNIQUE: An intraoperative cholangiogram was performed by the surgeon. Imaging was submitted. COMPARISON: None. FINDINGS: The visualized intrahepatic biliary ducts are unremarkable. The common bile duct is not dilated. No intraluminal filling defect is seen. There is free flow of contrast into the duodenum. RAD/Cholangiogram/ O R,Initial IMPRESSION: Unremarkable intraoperative cholangiogram. Electronically Signed: Jorge Anderson MD at 8:42 EDT , Service support ,
[2020-11-17] MEDS: Bupiv/Epi 0.25% 30 ML Vial (08:00)
--- NOTE | 2020-11-17 08:09 | OP.PCM_ITS ---
Problem List (1) Gallbladder sludge Status: Acute Report of Operation Date of Procedure: 11/17/20 Pre-Operative Diagnosis: Gallbladder sludge and biliary colic Post-Operative Diagnosis: Same Surgery/Procedure Performed:: Laparoscopic cholecystectomy with cholangiogram Specimen's removed: Gallbladder and contents Description of Procedure: After obtaining informed consent patient was brought back to the operating room. General anesthesia was induced. The abdomen was prepped and draped in usual sterile fashion. A small midline incision was made superior to the umbilicus and deepened to the level of fascia. The fascia was elevated and incised. Next the peritoneum was elevated and incised in the same fashion. Finger sweep was performed and the Guerra trocar was placed into the abdomen. The balloon was inflated. The abdomen was inflated to 15 mmHg. Next a camera was introduced into the abdomen and the abdomen was inspected. Next under direct visualization three 5-mm ports were placed one subxiphoid and 2 subcostal. Next the gallbladder was elevated and retracted toward the right shoulder. The peritoneum was stripped from the gallbladder. The gallbladder did have some adhesions to the fat in the pericolic region and some signs of prior inflammation. The infundibulum was located and retracted laterally. Next the triangle of Calot was dissected and the cystic duct and cystic artery were identified. Cholangiograms were performed. The Staley clamp was used to clamp across the infundibulum and the catheter needle was inserted into the gallbladder. Under fluoroscopy contrast was instilled into the gallbladder and the common duct, cystic duct as well as proximal hepatic ducts were identified. There was good filling of the duodenum. There were no filling defects noted in the common bile duct. The clamp was removed as well as the needle and the infundibulum was grasped once more. Three hemolock clips were placed across the cystic duct. The cystic duct was then divided leaving 2 clips on the stump. The cystic artery was clipped and divided in the same fashion. The hook cautery was then used to take the gallbladder off of the gallbladder bed. There was some bile spillage during the dissection off the liver bed. Hemostasis was obtained. Gallbladder fossa was irrigated and no active bleeding or bile leakage was noted. Next the camera was introduced in the subxiphoid port. An Endopouch bag was placed through the umbilical port and the gallbladder was placed into it. The gallbladder was then removed through the umbilical incision. The camera was then reinserted through the umbilical port. The gallbladder fossa was inspected once more and noted to be hemostatic with no leaking bile. The abdomen was suctioned dry. The 5 mm ports were removed under direct visualization. The umbilical port was then removed and the air was removed from the abdomen. Next using an 0 Vicryl suture the umbilical fascia was closed in a [id number] fashion. The umbilical port site was irrigated local anesthetic was administered to all the incisions. All the incisions were closed with interrupted subcuticular 4-0 Monocryl sutures followed by Steri- Strips and dressings. The patient was awoken and taken to PACU in stable condition. - Admit VTE Documentation VTE Mechan Device Prophylaxis: SCD's
--- NOTE | 2020-11-17 08:12 | PCM.DC.GB ---
Discharge Diet: Light diet - advance as tolerated Discharge Activity: Return to Normal Activity, May Not Drive - for 2-3 days or while taking narcotic pain medicataions., - - Do not drive, work heavy equipment or sign legal documents for 24 hours. May shower in (days): 1 - with the bandage in place. Lifting Restrictions: 20 lbs for 2 weeks Additional Activity Instructions:: Pain medication may cause nausea. You should typically eat light foods as you take your pain medications. Pain medication may also cause constipation. If this is a problem for you, please discuss with your doctor. Call your doctor if your incision/area has: Continuous Slow Oozing, Sudden Increased Bleeding, Increased Pain/ Swelling, Increased Redness, Foul Smelling Discharge, Fever of 101 or Higher Call your doctor if you observe: Fever of 101 or Higher Suture Line Care: Avoid Pulling/Pushing, Avoid Pinching/Bending Additional Dressing/Incision Instructions:: Leave operative bandaids on for 2 days. When you remove dressing, leave Steri-Strips on until your follow-up appointment, or until the Steri-Strips fall off on their own. Allergies/Adverse Reactions: Allergies meperidine HCl [From Demerol] Allergy (Verified 11/16/20 09:11) Swelling Medications to take at Discharge omeprazole 20 mg capsule,delayed release 20 mg PO DAILY #90 cap 07/07/20 Oxycodone HCl/Acetaminophen [Percocet 5-325 mg Tablet] 1 - 2 tab PO Q6H PRN PRN 5 Days #30 tablet 11/17/20 The following prescriptions were given: Oxycodone HCl/Acetaminophen [Percocet 5-325 mg Tablet] 1 - 2 tab PO Q6H PRN PRN 5 Days #30 tablet PRN Reason: Pain Score 4-10/10 Transmission Status: Sent to [facility] Primary Care Physician: Donell Vernon MD [Primary Care Provider] - Test Results: Test results from this visit will be discussed in further detail at your follow-up appointment, if applicable. Please Follow Up With: Eulalio Sorto MD When: Please call to schedule 2 week follow up appointment. [phone]
[2020-11-17] MEDS: Acetaminophen 325 MG Tablet PO (10:20)
[2020-11-17] MEDS: oxyCODONE 5 MG Tablet PO (10:20)
== END 2020-11-17 10:44 | disposition home or self-care (01) ==
LOC: SDC 05:58 → AC 05:59
PROVIDERS: PCP Internal Medicine; Referring Provider Surgery; Visit Provider Surgery
PROC: (CPT 47610; principal; 2020-11-17 07:10)
DX: K81.1 Chronic cholecystitis (principal); K82.8 Other specified diseases of gallbladder; K21.9 Gastro-esophageal reflux disease without esophagitis; Z85.41 Personal history of malignant neoplasm of cervix uteri; Z88.5 Allergy status to narcotic agent
CPT/HCPCS: 47563; 74300; 76000; 87426; 88304; 93005; C9803; J7120; J2405

== ENCOUNTER → 2021-05-26 08:08 | Outpatient (CLI) | payer OTHER, SELFPAY ==
--- NOTE | 2021-05-26 08:10 | BI_ITS ---
MAMMOGRAPHY - BILATERAL DIAGNOSTIC REASON FOR EXAM: Female, 35 years old. left breast pain PERTINENT HISTORY: Non-contributory. TECHNIQUE: Digital examination. Mediolateral oblique (MLO) and craniocaudad (CC) views of both breasts were obtained. CAD: CAD was performed on this study. COMPARISON: 03/29/2016 FINDINGS: Breast Composition: The breasts are extremely dense, which lowers the sensitivity of mammography. There are no dominant masses or suspicious calcifications. No other significant abnormalities are identified. BI/DIAG MAMM W/CAD, BILAT IMPRESSION: Stable bilateral diagnostic mammogram. ASSESSMENT CATEGORY: BIRADS Category 1: Negative. A letter regarding these results will be sent to the patient by the facility within 30 days. FOLLOW UP RECOMMENDATION: Yearly follow up mammogram recommended. (A) Approximately 10% of breast cancers are not detected by mammography. A normal mammogram should not delay biopsy of a clinically suspicious abnormality. Electronically Signed: Sergio Dent MD at 9:04 EDT Tel , Service support ,
== END ==
PROVIDERS: PCP Internal Medicine; Visit Provider Nurse Practitioner Family
DX: N64.4 Mastodynia (principal)
CPT/HCPCS: 77062; 77066; G0279

== ENCOUNTER → 2021-06-18 13:14 | Outpatient (CLI) | payer OTHER, SELFPAY ==
--- NOTE | 2021-06-18 13:15 | MRI_ITS ---
STUDY: BILATERAL BREAST MR WITHOUT AND WITH CONTRAST REASON FOR EXAM: Female, 35 years old. Left breast pain and left chest pain radiating into left axilla. TECHNIQUE: Multi-sequence multi-echo imaging of both breasts was performed with a dedicated breast coil. T1-weighted and T2-weighted images were performed before the administration of contrast. T1-weighted images were also performed after the administration of 12 mL of Dotarem contrast intravenously without complications. COMPARISON: Bilateral mammograms dated 05/28/2021 and breast ultrasound dated 03/25/2016. FINDINGS: RIGHT BREAST: The breast tissue is heterogeneously dense with mild background enhancement. There are no abnormal enhancing masses or areas of non-mass enhancement in the right breast. LEFT BREAST: The breast tissue is heterogeneously dense with mild background enhancement. There are no abnormal enhancing masses or areas of non-mass enhancement in the left breast. There are no enlarged or abnormal lymph nodes. There is no abnormality in the visualized regions of the chest or liver. MRI/Breast Bilateral W/O and W IMPRESSION: No abnormality of the breast MRI with contrast. Continued yearly mammogram recommended. CATEGORY: BIRADS Category 2: Benign. A letter regarding these results will be sent to the patient by the facility within 30 days. Electronically Signed: Liam Riddle MD at 9:20 EDT , Service support ,
== END ==
PROVIDERS: PCP Internal Medicine; Referring Provider Internal Medicine; Visit Provider Internal Medicine
DX: N64.4 Mastodynia (principal)
CPT/HCPCS: 77049; A9575; A4216; C8908

== ENCOUNTER → 2022-05-17 | Outpatient (CLI) | payer OTHER, SELFPAY ==
--- NOTE | 2022-05-17 15:21 | BI_ITS ---
MAMMOGRAPHY - BILATERAL SCREENING REASON FOR EXAM: Female, 36 years old. Routine annual screening examination. PERTINENT HISTORY: Non-contributory. TECHNIQUE: Digital bilateral breast lena (3D mammographic acquisition) in the CC and MLO projections. 2-D mediolateral oblique (MLO) and craniocaudad (CC) views of both breasts were obtained. CAD: Full Field Digital Mammography with Computer Added Detection was performed. COMPARISON: Comparison is made with prior examination dated 05/26/2021. FINDINGS: Breast Composition: The breasts are extremely dense, which lowers the sensitivity of mammography. There are no dominant masses or suspicious calcifications. No other significant abnormalities are identified. There has been no significant change since the prior study. BI/SCRN MAMM (CAD)W/LENA BILAT IMPRESSION: Stable bilateral screening mammogram. Yearly follow-up mammogram recommended. (A) ASSESSMENT CATEGORY: BIRADS Category 1: Negative. A letter regarding these results will be sent to the patient by the facility within 30 days. Approximately 10% of breast cancers are not detected by mammography. A normal mammogram should not delay biopsy of a clinically suspicious abnormality. [id number] Electronically Signed: Jorge Anderson MD at 15:43 EDT ,
== END | disposition home or self-care (01) ==
LOC: OPBI 15:18
PROVIDERS: PCP Internal Medicine; Visit Provider Physician Assistant
DX: Z12.31 Encounter for screening mammogram for malignant neoplasm of breast (principal)
CPT/HCPCS: 77063; 77067

== ENCOUNTER → 2022-08-05 | Outpatient (CLI) | payer OTHER, SELFPAY ==
[2022-08-05 16:36] LABS: Absolute Lymphocyte Count 1.75 X10^3/uL (0.83-4.51); Basophil# 0.03 X10^3/uL; Basophil% 0.6 % (0-1); Eosinophil# 0.26 X10^3/uL; Eosinophils% 4.8 % (0-5); Hematocrit 39.6 % (37-47); Hemoglobin 13.8 g/dL (12.0-15.0); Lymphocyte # 1.75 X10^3/ul (0.83-4.51); Lymphocyte % 32.3 % (19-41); Mean Corp Hgb Conc 34.8 g/dL (32-36); Mean Corpuscular Hgb 32.5 pg (27.0-32.0); Mean Corpuscular Volume 93.4 fL (81-99); Mean Platelet Vol. 9.9 fl (6.2-12.0); Monocyte# 0.36 X10^3/uL; Monocyte% 6.6 % (0-10); NRBC Flagged by Analyzer 0 % (0-5); Neutrophil % 55.3 % (47-70); Platelet Count 291 K/mm3 (150-450); RBC Distribution Width CV 12.6 % (11.6-14.6); RBC Distribution Width SD 43.1 fl (35.1-43.9); Red Blood Count 4.24 M/mm3 (4.2-5.4); White Blood Count 5.4 K/mm3 (4.4-11.0)
[2022-08-05 17:01] LABS: ALB/GLOB Ratio 1.3 RATIO (0.9-2.4); AST(SGOT) 19 U/L (15-37); Alanine Aminotransfer ALT/SGPT 25 U/L (13-56); Albumin, Serum 4.1 g/dL (3.2-5.0); Alkaline Phosphatase 56 U/L (45-117); Anion Gap 5 (5-15); BUN 15 mg/dL (7-18); Calcium,Total 9.3 mg/dL (8.5-10.1); Chloride 109 mmol/L (98-107); Creatinine, Serum 0.79 mg/dL (0.55-1.02); EST Glomerular Filtration Rate 87 mL/min (>60); Est Glom Filt Rate - Afr Amer 105 mL/min (>60); Globulin 3.2 g/dL (2.2-4.2); Glucose 87 mg/dL (74-106); Potassium 4.1 mmol/L (3.5-5.1); Protein, Total 7.3 g/dL (6.4-8.2); Sodium Level 140 mmol/L (136-145)
== END | disposition home or self-care (01) ==
LOC: BIMLAB 15:44
PROVIDERS: PCP Internal Medicine; Referring Provider Internal Medicine; Visit Provider Internal Medicine
DX: K21.9 Gastro-esophageal reflux disease without esophagitis (principal)
CPT/HCPCS: 36415; 80053; 85025

== ENCOUNTER 2022-11-29 09:10 | Day surgery (SDC) | payer OTHER, SELFPAY ==
[2022-11-29] VITALS (7 sets, daily range): BP systolic 109–121; BP diastolic 67–82; PULSE 63–78; RESP 16; TEMP 36.1–36.6; O2SAT 100; BMI 26.2
--- NOTE | 2022-11-29 | ESO_PTH ---
PATIENT: SARAH HAGAN LOC: EN U#:[id number] AGE/SX: 37/F ROOM: RE11/29/[address]: Dr. Eulalio Sorto MD : 1985 BED: DIS: 11/29/2022 SPEC #: [id number] RECD: 11/29/22 13:05 STATUS: VIRGIE FRANCES #: [id number] FANTA: 11/29/22 00:[address]: Eulalio Sorto DEPT: SURGICAL PATHOLOGY RECD BY: Rafa Milian ENTERED: 11/29/22 13:05 SP TYPE: LOYD ALANIZ DR: Dr. Donell Vernon MD Tissues: Esophagus, NOS Procedures: Surgery Specimen Level IV HEADER OPERATION: EGD ([facility] [place]) with biopsy and dilation PRE-OP DIAGNOSIS: GERD, dysphagia TISSUE SUBMITTED: Distal esophagus biopsy MICROSCOPIC DIAGNOSIS Distal esophagus, biopsy: Consistent with eosinophilic esophagitis. See comment. SJ:dariela 11/30/2022 COMMENT Increased number of eosinophils (>20 per high power field) are noted consistent with eosinophilic esophagitis. MICROSCOPIC DESCRIPTION Slides are reviewed. GROSS DESCRIPTION Received in fixative is one container labeled with the patient's name and designated distal esophagus biopsy. The specimen consists of two irregular fragments of light fisher soft tissue that in aggregate measure 0.6 x 0.3 x 0.1 cm. The specimen is totally submitted in one cassette. / AIDA:dariela 11/29/2022 TC:3 CPT: 07222
--- NOTE | 2022-11-29 09:51 | PCM.HP.BLA ---
History and Physical Date of Admission: 11/29/22 Intake Vital Signs ? 11/02/2312:12 Height 5 ft 3 in Weight: 150 lb 4 oz BMI 26.6 BP 131/82 H Blood Pressure Location Rt brachial Position Sitting Respiration 17 Pulse 74 Pulse Source Monitor Temp 97.1 F L Temp Source Temporal Pulse Oximetry (%) 99 Oxygen Delivery Method room air Intake Visit Reasons:?Acid reflux Chief Complaint: acid reflux Is patient in pain?: No Allergies meperidine HCl [From Demerol] Allergy (Verified 11/02/22 13:14) Swelling Medications omeprazole 40 mg capsule,delayed release 40 mg PO DAILY #90 caps 06/07/22 [Rx Confirmed 11/02/22] buspirone 10 mg tablet 10 mg PO BID #180 tabs 10/31/22 [Rx Confirmed 11/02/22] PFSH Medical History? Acute bronchitis Anxiety Asthma Breast pain, left Chest pain Costochondritis Dysphagia GERD (gastroesophageal reflux disease) GERD (gastroesophageal reflux disease) Hematuria History of cervical cancer history of schatzki ring UTI (urinary tract infection) Surgical History? H/O cervical biopsy History of esophagogastroduodenoscopy (EGD) History of esophagogastroduodenoscopy (EGD) (~06/2020) History of total hysterectomy S/P laparoscopic cholecystectomy Family History? Grandfather Myocardial infarction,? Onset Age: 50 HypertensionMother HypertensionGrandmother CVA (cerebral vascular accident)Brother Asthma Social History? Smoking Status:? Smoker, status unknown alcohol intake:? current alcohol intake frequency: holidays/special occasions only substance use type:? does not use what type of physical activity do you participate in:? none HPI HPI HPI: Patient is a 37-year-old female here with reflux and dysphagia.? Patient reports that ever since her gallbladder came out she has been having reflux.? She says that she was on omeprazole but it was giving her diarrhea and when she stopped the omeprazole her diarrhea improved.? She says that she had EGD for food sticking years ago but never had dilation.? She says she is feeling food sticking again. ROS General General: Yes weight change; No appetite, fatigue, colon cancer, breast cancer or weakness Additional Details: wt gain HEENT HEENT: Yes difficulty swallowing; No eye injury, eye surgery, swollen glands or hoarseness Endo Endocrine: No thyroid disease, diabetes mellitus, thyroid cancer, Hair loss, heat intolerance or cold intolerance Skin Skin: No rash or changing moles Musc Musculoskeletal: No back problems, arthritis, rheumatoid arthritis, gout or joint pain Cardio Cardiovascular: No murmur, pacemaker, heart disease, atrial fibrillation, high blood pressure, heart attack, heart stent, palpitations, shortness of breat with exertion or chest pain Psych Psychiatric: Yes anxiety; No depression or hearing voices Resp Respiratory: No shortness of breath, No sleep apnea, No cough, No COPD, No asthma, No emphysema and No wheezing Gastro Gastrointestinal: No abdominal pain, No nausea or vomiting, Yes diarrhea, No constipation, No blood in stool, Yes acid reflux, No hemorrhoids, No ulcers, No gallbladder problem and No black,tarry stools Rajan Hematologic: No blood thinners, No blood disorders, No bleeding, No anemia and No blood clots Neuro Neurologic: No system reviewed and no additional complaints, except as documented, No as per HPI, No abnormal gait, No abnormal hearing, No abnormal movements, No abnormal speech, No behavioral changes, No burning sensations, No confusion, No convulsions, No disequilibrium, No dizziness, No localized weakness, No frequent falls, No headache(s), No lack of coordination, No loss of vision, No memory loss, No numbness, No other visual disturbances, No radicular pain, No restless legs, No sensory deficit, No syncope, No tingling, No tremor(s), No weakness and No other Exam Const General: cooperative Orientation: alert and oriented x3 HENMT Head: normal to inspection Neck Neck: normal visual inspection and full ROM Chest Chest palpation & inspection: normal inspection of the chest Resp Effort & Inspection: normal respiratory effort Auscultation: clear to auscultation bilaterally Cardio Rate: regular rate Rhythm: regular rhythm GI Inspection: non-distended Palpation: soft and nontender Skin General: no rashes or lesions noted Neuro General: patient alert and patient oriented x3 Extrem General: full ROM Psych Appearance: grossly normal Mental Status: mental status grossly normal Assessment and Plan Assessment and Plan (1) GERD (gastroesophageal reflux disease): ?Status:?Chronic ?Qualifiers: ?Esophagitis presence:?esophagitis presence not specified? Qualified Code(s):?K21.9 - Gastro-esophageal reflux disease without esophagitis (2) Dysphagia: ?Status:?Acute ?Qualifiers: ?Dysphagia type:?esophageal phase? Qualified Code(s):?R13.19 - Other dysphagia ? ? ? Orders: Orders EGD Today ? ? Plan Patient has been having dysphagia and feels food sticking.? I discussed EGD with possible dilation with her.? I discussed the increased risk of perforation or bleeding with dilation. I explained endoscopy in detail to the patient.? I explained the risks including but not limited to stroke or heart attack with anesthesia, perforation of the GI tract, bleeding, infection.? I explained that any of these could necessitate further emergency surgery.? The patient understands and all questions were answered sufficiently.? The patient wishes to proceed with procedure. Patient is also having acid reflux and cannot take PPI as she says it causes her diarrhea.? I briefly discussed fundoplication with her and she would like to address these problems more over summertime. Eulalio Sorto MD Pager: [facility] [place] [address] [place] [address] [address] [place] [address] Office: I have examined the patient and the H&P has been reviewed. There are no clinical changes since date of exam.
[2022-11-29] MEDS: Lactated Ringers 1,000 ML 15 ML IV (09:58)
--- NOTE | 2022-11-29 10:48 | OP.EGD_ITS ---
Patient Name: Tamika Sauceda Procedure Date: 11/29/2022 10:00 AM Date of : 1985 Age: 37 Procedure: Upper GI endoscopy Indications: Dysphagia Providers: Eulalio Sorto MD Referring MD: Eulalio Sorto MD Medicines: Monitored Anesthesia Care Patient Profile: This is a 37 year old female. Refer to note in patient chart for documentation of history and physical. Complications: No immediate complications. Estimated blood loss: Minimal. Procedure: Pre-Anesthesia Assessment: - Prior to the procedure, a History and Physical was performed, and patient medications and allergies were reviewed. The patient's tolerance of previous anesthesia was also reviewed. The risks and benefits of the procedure and the sedation options and risks were discussed with the patient. All questions were answered, and informed consent was obtained. Prior Anticoagulants: The patient has taken no previous anticoagulant or antiplatelet agents. After reviewing the risks and benefits, the patient was deemed in satisfactory condition to undergo the procedure. After obtaining informed consent, the endoscope was passed under direct vision. Throughout the procedure, the patient's blood pressure, pulse, and oxygen saturations were monitored continuously. The gastroscope was introduced through the mouth, and advanced to the third part of duodenum. The upper GI endoscopy was accomplished without difficulty. The patient tolerated the procedure well. Scope In: 10:22:47 AM Scope Out: 10:31:51 AM Total Procedure Duration Time 0 hours 9 minutes 4 seconds Findings: Moderately severe esophagitis with no bleeding was found at the gastroesophageal junction. Biopsies were taken with a cold forceps for histology. One benign-appearing, intrinsic stenosis was found at the gastroesophageal junction. This stenosis was moderately severe (circumferential scarring or stenosis; an endoscope may pass) and. The stenosis was traversed. A TTS dilator was passed through the scope. Dilation with an 18-19-20 mm balloon dilator was performed to 19 mm. The dilation site was examined following endoscope reinsertion and showed complete resolution of luminal narrowing. Estimated blood loss was minimal. The stomach was normal. The examined duodenum was normal. Impression: - Moderately severe reflux esophagitis. Biopsied. - Benign-appearing esophageal stenosis. Dilated. - Normal stomach. - Normal examined duodenum. Recommendation: - Discharge patient to home. - Resume previous diet. - Continue present medications. - Await pathology results. Procedure Code(s): --- Professional --- 01206, Esophagogastroduodenoscopy, flexible, transoral; with transendoscopic balloon dilation of esophagus (less than 30 mm diameter) Diagnosis Code(s): --- Professional --- K21.0, Gastro-esophageal reflux disease with esophagitis K22.2, Esophageal obstruction R13.10, Dysphagia, unspecified CPT copyright 2017 [employer]. All rights reserved. The codes documented in this report are preliminary and upon community service technician review may be revised to meet current compliance requirements. Eulalio Sorto MD 11/29/2022 10:47:11 AM This report has been signed electronically. Number of Addenda: 0 Note Initiated On: 11/29/2022 10:00 AM
--- NOTE | 2022-11-29 10:48 | OP.CCLET_ITS ---
11/29/2022 Donell Vernon MD [address] [place] [address] [place] [address] Re : Upper GI endoscopy procedure for Tamika Sauceda Dear Dr. Vernon This procedure was performed on Tuesday, November 29, 2022. My impressions and recommendations are as follows: Impressions : - Moderately severe reflux esophagitis. Biopsied. - Benign-appearing esophageal stenosis. Dilated. - Normal stomach. - Normal examined duodenum. Recommendations : - Discharge patient to home. - Resume previous diet. - Continue present medications. - Await pathology results. My findings are described in the full procedure note, which is enclosed. If I can be of further assistance, please feel free to contact me at Doctor phone number(s): , Work: . Sincerely, Eulalio Sorto MD 11/29/2022 10:47:11 AM This report has been signed electronically.
== END 2022-11-29 11:32 | disposition home or self-care (01) ==
LOC: EN 09:13 → AC 09:40
PROVIDERS: PCP Internal Medicine; Referring Provider Surgery; Visit Provider Surgery
PROC: 0DJ08ZZ Inspection of Upper Intestinal Tract, Via Natural or Artificial Opening Endoscopic (ICD-10-PCS; CPT 43235; principal; 2022-11-29 10:10)
DX: R13.10 Dysphagia, unspecified (principal); K22.2 Esophageal obstruction; F17.200 Nicotine dependence, unspecified, uncomplicated; K21.00 Gastro-esophageal reflux disease with esophagitis, without bleeding
CPT/HCPCS: 43249; 43239; 88305; J7120; J2405

== ENCOUNTER → 2023-07-24 | Outpatient (CLI) | payer OTHER, SELFPAY ==
[2023-07-24 15:50] LABS: Absolute Lymphocyte Count 1.58 X10^3/uL (0.83-4.51); Absolute Neutrophil Count 2.7 X10^3/uL (2.0-7.7); Basophil# 0.04 X10^3/uL; Basophil% 0.8 % (0-1); Eosinophil# 0.19 X10^3/uL; Lymphocyte # 1.58 X10^3/ul (0.83-4.51); Lymphocyte % 32.8 % (19-41); Mean Corp Hgb Conc 32.6 g/dL (32-36); Mean Corpuscular Volume 95.1 fL (81-99); Mean Platelet Vol. 10.3 fl (6.2-12.0); Monocyte% 6.2 % (0-10); NRBC Flagged by Analyzer 0 % (0-5); Neutrophil # 2.69 X10^3/uL (2.7-7.7); Platelet Count 297 K/mm3 (150-450); RBC Distribution Width CV 12.7 % (11.6-14.6); RBC Distribution Width SD 44.5 fl (35.1-43.9); Red Blood Count 4.52 M/mm3 (4.2-5.4); White Blood Count 4.8 K/mm3 (4.4-11.0)
[2023-07-24 16:18] LABS: ALB/GLOB Ratio 1.2 RATIO (0.9-2.4); AST(SGOT) 31 U/L (15-37); Alanine Aminotransfer ALT/SGPT 55 U/L (13-56); Albumin, Serum 4.3 g/dL (3.2-5.0); Alkaline Phosphatase 67 U/L (45-117); Anion Gap 8 (5-15); BUN 15 mg/dL (7-18); BUN/Creat Ratio 19.1 RATIO (10-20); Calcium,Total 9.1 mg/dL (8.5-10.1); Chloride 107 mmol/L (98-107); Cholesterol 147 mg/dL (200); Creatinine, Serum 0.78 mg/dL (0.55-1.02); EST Glomerular Filtration Rate 87 mL/min (>60); Est Glom Filt Rate - Afr Amer 105 mL/min (>60); Globulin 3.6 g/dL (2.2-4.2); Glucose 90 mg/dL (74-106); High Density Lipoprotein 89 mg/dL; Potassium 3.7 mmol/L (3.5-5.1); Protein, Total 7.9 g/dL (6.4-8.2); Sodium Level 139 mmol/L (136-145); Triglycerides 51 mg/dL; Very Low Density Lipoprotein 10 mg/dL (5-40)
== END | disposition home or self-care (01) ==
LOC: BIMLAB 13:57
PROVIDERS: PCP Internal Medicine; Referring Provider Internal Medicine; Visit Provider Internal Medicine
DX: Z00.00 Encounter for general adult medical examination without abnormal findings (principal)
CPT/HCPCS: 36415; 80053; 80061; 85025

== ENCOUNTER → 2023-08-03 | Outpatient (CLI) | payer OTHER, SELFPAY ==
--- NOTE | 2023-08-03 10:00 | BI_ITS ---
MAMMOGRAPHY - BILATERAL SCREENING REASON FOR EXAM: Female, 37 years old. Routine annual screening examination. PERTINENT HISTORY: Non-contributory. TECHNIQUE: Digital bilateral breast lena (3D mammographic acquisition) in the CC and MLO projections. 2-D mediolateral oblique (MLO) and craniocaudad (CC) views of both breasts were obtained. CAD: Full Field Digital Mammography with Computer Added Detection was performed. COMPARISON: Comparison is made with prior study dated May 17, 2022 and May 26, 2021. FINDINGS: Breast Composition: The breasts are extremely dense, which lowers the sensitivity of mammography. There are no dominant masses or suspicious calcifications. No other significant abnormalities are identified. There has been no significant change since the prior study. BI/SCRN MAMM (CAD)W/LENA BILAT IMPRESSION: Stable bilateral screening mammogram. Yearly follow-up mammogram recommended. (A) ASSESSMENT CATEGORY: BIRADS Category 1: Negative. A letter regarding these results will be sent to the patient by the facility within 30 days. Approximately 10% of breast cancers are not detected by mammography. A normal mammogram should not delay biopsy of a clinically suspicious abnormality. [id number] Electronically Signed: Jorge Anderson MD at 11:16 EST ,
== END | disposition home or self-care (01) ==
LOC: OPBI 09:59
PROVIDERS: PCP Internal Medicine; Referring Provider Internal Medicine; Visit Provider Internal Medicine
DX: Z12.31 Encounter for screening mammogram for malignant neoplasm of breast (principal)
CPT/HCPCS: 77063; 77067